=== PATIENT | male | born 1955 | race Hispanic/Latino ===

== ENCOUNTER 2021-05-10 16:37 | Observation (INO) | payer MEDICARE ==
[2021-05-10] MEDS ORDERED: ASPIRIN 325 MG TAB PO ONE (17:31)
[2021-05-10] MEDS ORDERED: NITROGLYCERIN 2% OINT 1 GM TP ONE (17:31)
--- NOTE | 2021-05-10 17:36 | Emergency Department Report ---
HPI - General Chief Complaint: Chest Pain Time Seen by Provider: 05/10/21 17:06 - HPI HPI: Room 4 The patient is a 65-year-old male present with a chief complaint of chest pain. The patient states he had taken his daughter to the dentist and was sitting in the waiting room when he suddenly began to feel nauseous developed sharp substernal chest pain that was intermittent associated with shortness of breath and diaphoresis. Patient states he walked outside to his car and he felt near syncopal. Patient states he sat down in his car and called his . The patient states his next memory is of his next to him waking him up. The patient states he does not remember ending the phone conversation. The states that they did end the phone conversation but she probably hung up first. The patient is not certain if he lost consciousness or fell asleep. The states it took her approximately 1 hour to get to where he wants his of his chest pain lasted approximately 1 hour 15 minutes. Patient has a history of atrial fibrillation and is currently taking Eliquis. Patient states his last cardiac catheterization occurred over 10 to 20 years ago. ED Past Medical Hx - Past Medical History Hx Hypertension: Yes Hx CVA: Yes (TIAs) Hx Diabetes: Yes Hx COPD: Yes (Home O2) Additional medical history: AFIB - Surgical History Past Surgical History?: No Additional Surgical History: Herniorrhaphy - Social History Smoking Status: Former Smoker (None since the age 18) Substance Use Type: None (Denies illicit drug use) ED Review of Systems ROS: Stated complaint: CHEST PAIN Other details as noted in HPI Constitutional: diaphoresis Eyes: denies: eye pain ENT: denies: throat pain Respiratory: shortness of breath Cardiovascular: chest pain Endocrine: no symptoms reported Gastrointestinal: nausea. denies: vomiting Genitourinary: denies: dysuria Musculoskeletal: denies: back pain Neurological: denies: headache Physical Exam - Physical Exam Vital Signs: Vital Signs 05/10/21 16:44 Temperature 98 F Pulse Rate 78 Respiratory 16 Rate Blood Pressure 163/75 [Left] O2 Sat by Pulse 95 Oximetry Physical Exam: GENERAL: The patient is well-developed well-nourished male lying on stretcher not appearing to be in acute distress. [] HEENT: Normocephalic. Atraumatic. Extraocular motions are intact. Patient has moist mucous membranes. NECK: Supple. Trachea midline CHEST/LUNGS: Clear to auscultation. There is no respiratory distress noted. HEART/CARDIOVASCULAR: Regular. There is no tachycardia. There is no gallop rub or murmur. ABDOMEN: Abdomen is soft, nontender. Patient has normal bowel sounds. There is no abdominal distention. SKIN: There is no rash. There is no edema. There is no diaphoresis. NEURO: The patient is awake, alert, and oriented. The patient is cooperative. The patient has no focal neurologic deficits. The patient has normal speech. GCS 15 MUSCULOSKELETAL: There is no evidence of acute injury. ED Course Vital Signs 05/10/21 16:44 Temperature 98 F Pulse Rate 78 Respiratory 16 Rate Blood Pressure 163/75 [Left] O2 Sat by Pulse 95 Oximetry ED Medical Decision Making - Lab Data Result diagrams: 05/10/21 17:36 Laboratory Tests 05/10/21 05/10/21 05/10/21 17:36 17:36 17:36 WBC 8.7 RBC 4.55 Hgb 13.6 Hct 40.9 MCV 90 MCH 30 MCHC 33 RDW 13.8 Plt Count 171 Lymph % (Auto) 13.3 L [place] % (Auto) 4.9 Eos % (Auto) 1.2 Baso % (Auto) 0.5 Lymph # (Auto) 1.2 [place] # (Auto) 0.4 Eos # (Auto) 0.1 Baso # (Auto) 0.0 Seg Neutrophils % 80.1 H Seg Neutrophils # 7.0 PT 14.0 INR 0.97 APTT 30.3 Sodium 138 Potassium 3.9 Chloride 101.3 Carbon Dioxide 20 L Anion Gap 21 BUN 14 Creatinine 0.9 Estimated GFR > 60 BUN/Creatinine Ratio 16 Glucose 134 H Calcium 9.4 Total Creatine Kinase 133 CK-MB (CK-2) 4.1 H CK-MB (CK-2) Rel Index 3.0 Troponin T < 0.010 NT-Pro-B Natriuret Pep 249.6 - EKG Data -: EKG Interpreted by Me EKG shows normal: sinus rhythm, axis Rate: normal (77 bpm) - EKG Data When compared to previous EKG there are: previous EKG unavailable Interpretation: other (PVC) - Radiology Data Radiology results: report reviewed (Chest x-ray), image reviewed (Chest x-ray) interpreted by me: Chest x-ray-no definite focal infiltrates, no pneumothorax [facility] [address] [place] [address] XRay Report Signed Patient: HONG DOLAN MR#: [id number] 10 : 1955 Acct:[id number] Age/Sex: 65 / M ADM Date: 05/10/21 Loc: ED Attending Dr: Ordering Physician: AALIYAH WALKER MD Date of Service: 05/10/21 Procedure(s): XR chest 1V ap Accession Number(s): [id number] cc: AALIYAH WALKER MD Fluoro Time In Minutes: CHEST 1 VIEW 05/10/2021 5:37 PM INDICATION / CLINICAL INFORMATION: ches t pain. COMPARISON: None available. FINDINGS: SUPPORT DEVICES: None. HEART / MEDIASTINUM: No significant abnormality. LUNGS / PLEURA: No significant pulmonary or pleural abnormality. No pneumothorax. ADDITIONAL FINDINGS: No significant additional findings. IMPRESSION: 1. No acute findings. Signer Name: Roxy Valencia MD Signed: 05/10/2021 5:53 PM Workstation Name: [id number] Transcribed By: DT Dictated By: Quinn Valencia MD Electronically Authenticated By: Quinn Valencia MD Signed Date/Time: 05/10/211752 DD/ 51 TD/TT: Print Cancel - Differential Diagnosis ACS, pericarditis, GERD, costochondritis Critical care attestation.: If time is entered above; I have spent that time in minutes in the direct care of this critically ill patient, excluding procedure time. ED Disposition Clinical Impression: Chest pain Disposition: ADMITTED INPATIENT Is pt being admited?: Yes Does the pt Need Aspirin: Yes Condition: Fair Instructions: Nonspecific Chest Pain, Adult Time of Disposition: 19:23 (Hospitalist called (Dr. Nielson)) Heart Score - HEART Score History: Moderately suspicious EKG: Non-specific Age: > 65 Risk factors: > 3 risk factors or hx of atherosclerotic disease Troponin: < normal limit HEART Score: 6 - EKG Read Time Time EKG Completed: 17:29 EKG Read Time: 17:34
[2021-05-10 17:55] LABS: Basophils % (Auto) 0.5 % (0.0-1.8); Eosinophils # (Auto) 0.1 K/mm3 (0.0-0.4); Eosinophils % (Auto) 1.2 % (0.0-4.3); Hematocrit 40.9 % (35.5-45.6); Hemoglobin 13.6 gm/dl (11.8-15.2); Lymphocytes # (Auto) 1.2 K/mm3 (1.2-5.4); Lymphocytes % (Auto) 13.3 % (13.4-35.0); Mean Corpuscular HGB Conc 33 % (32-34); Mean Corpuscular Volume 90 fl (84-94); Monocytes # (Auto) 0.4 K/mm3 (0.0-0.8); Monocytes % (Auto) 4.9 % (0.0-7.3); Platelet Count 171 K/mm3 (140-440); Red Blood Count 4.55 M/mm3 (3.65-5.03); Red Cell Distribution Width 13.8 % (13.2-15.2)
--- NOTE | 2021-05-10 17:57 | XRay Report ---
CHEST 1 VIEW 05/10/2021 5:37 PM INDICATION / CLINICAL INFORMATION: chest pain. COMPARISON: None available. FINDINGS: SUPPORT DEVICES: None. HEART / MEDIASTINUM: No significant abnormality. LUNGS / PLEURA: No significant pulmonary or pleural abnormality. No pneumothorax. ADDITIONAL FINDINGS: No significant additional findings. IMPRESSION: 1. No acute findings. Signer Name: Roxy Valencia MD Signed: 05/10/2021 5:53 PM Workstation Name: [id number]
[2021-05-10 18:02] LABS: INR 0.97 (0.87-1.13)
[2021-05-10 18:03] LABS: Partial Thromboplastin Time 30.3 Sec. (24.2-36.6)
[2021-05-10 19:18] LABS: Creatine Kinase MB 4.1 ng/mL (0.0-4.0)
[2021-05-10 19:19] LABS: BUN/Creatinine Ratio 16; Blood Urea Nitrogen 14 mg/dL (9-20); Calcium 9.4 mg/dL (8.4-10.2); Hemolysis Index 18
[2021-05-10] MEDS ORDERED: MORPHINE 4 MG/1 ML INJ IV PRN (22:21)
[2021-05-10] MEDS ORDERED: METOCLOPRAMIDE 10 MG/2 ML INJ IV PRN (22:21)
[2021-05-10] MEDS ORDERED: ONDANSETRON 4 MG/2 ML INJ IV PRN (22:21)
[2021-05-10] MEDS ORDERED: ACETAMINOPHEN 325 MG TAB PO PRN (22:21)
[2021-05-10] MEDS ORDERED: oxyCODONE /ACETAMINOPHEN 5-325MG TAB PO PRN (22:21)
--- NOTE | 2021-05-10 22:27 | History and Physical Report ---
History of Present Illness Date of examination: 05/10/21 Date of admission: 05/10/21 19:25 Chief complaint: Chest pain for 1 and half hours and passing out prior to admission History of present illness: 65-year-old male with history of hypertension, TIAs, COPD and atrial fibrillation took his daughter to the dentist and was waiting in and call his . The car and 70 became nauseous and developed substernal chest pain that was intermittent and associated with shortness of breath. His temporary R and felt as if he was going to pass out. Patient remembers sitting in his car again and called calling his . Patient apparently passed out for about 4 minutes patient does not remember having a phone conversation with his chest pain lasted about 1 hour 50 minutes. Patient is currently taking Eliquis for his atrial fibrillation. Chest pain was there for 1 hour hours and is now nearly resolved. Chest pain was about 8 on a scale of 1-10 and continuous for 1-1/2 hours. Patient had a cardiac cath about 10 years ago. Patient has a history of COPD and is on home O2. Patient does not remember any of his medications and medications were not reconciled. Patient had diaphoresis when he had the chest pain. No radiation. No vomiting. Some diaphoresis was present. - Past Medical History Hx Hypertension: Yes Hx CVA: Yes (TIAs) Hx Diabetes: Yes Hx COPD: Yes (Home O2) Additional medical history: AFIB - Surgical History Past Surgical History?: No Additional Surgical History: Herniorrhaphy - Social History Smoking Status: Former Smoker (None since the age 18) Substance Use Type: None (Denies illicit drug use) Review of Systems ROS: Stated complaint: CHEST PAIN Other details as noted in HPI Constitutional: diaphoresis Eyes: denies: eye pain ENT: denies: throat pain Respiratory: shortness of breath Cardiovascular: chest pain Endocrine: no symptoms reported Gastrointestinal: nausea. denies: vomiting Genitourinary: denies: dysuria Musculoskeletal: denies: back pain Neurological: denies: headache 65-year-old male with history of hypertension, type COPD and atrial fibrillation COPD, atrial fibrillation Medications and Allergies Allergies Allergy/AdvReac Type Severity Reaction Status Date / Time No Known Allergies Allergy Verified 05/10/21 16:44 Exam - Constitutional Vitals: Temp Pulse Resp BP Pulse Ox 98 F 88 20 143/82 94 05/10/21 19:05 05/10/21 19:30 05/10/21 21:30 05/10/21 21:30 05/10/21 21:30 General appearance: Present: no acute distress, well-nourished - EENT Eyes: Present: PERRL ENT: hearing intact, clear oral mucosa - Neck Neck: Present: supple, normal ROM - Respiratory Respiratory effort: normal Respiratory: bilateral: CTA - Cardiovascular Heart rate: 77 Rhythm: regular Heart Sounds: Present: S1 & S2. Absent: rub, click - Extremities Extremities: pulses symmetrical, No edema Peripheral Pulses: within normal limits - Abdominal General gastrointestinal: Present: soft, non-tender, non-distended, normal bowel sounds Male genitourinary: Present: normal - Integumentary Integumentary: Present: clear, warm, dry - Musculoskeletal Musculoskeletal: gait normal, strength equal bilaterally - Psychiatric Psychiatric: appropriate mood/affect, intact judgment & insight - Neurologic Neurologic: CNII-XII intact, moves all extremities - Allied Health Allied health notes reviewed: nursing, case management HEART Score - HEART Score EKG: Non-specific Age: > 65 Risk factors: > 3 risk factors or hx of atherosclerotic disease Troponin: Troponin T < 0.010 ng/mL (0.00-0.029) 05/10/21 17:36 Troponin: < normal limit - Critical Actions Critical Actions: 4-6 pts:12-16.6% risk of adverse cardiac event. Should be admitted Results - Labs CBC & Chem 7: 05/11/21 04:28 05/11/21 04:28 Labs: Laboratory Last Values WBC 8.7 K/mm3 (4.5-11.0) 05/10/21 17:36 RBC 4.55 M/mm3 (3.65-5.03) 05/10/21 17:36 Hgb 13.6 gm/dl (11.8-15.2) 05/10/21 17:36 Hct 40.9 % (35.5-45.6) 05/10/21 17:36 MCV 90 fl (84-94) 05/10/21 17:36 MCH 30 pg (28-32) 05/10/21 17:36 MCHC 33 % (32-34) 05/10/21 17:36 RDW 13.8 % (13.2-15.2) 05/10/21 17:36 Plt Count 171 K/mm3 (140-440) 05/10/21 17:36 Lymph % (Auto) 13.3 % (13.4-35.0) L 05/10/21 17:36 [place] % (Auto) 4.9 % (0.0-7.3) 05/10/21 17:36 Eos % (Auto) 1.2 % (0.0-4.3) 05/10/21 17:36 Baso % (Auto) 0.5 % (0.0-1.8) 05/10/21 17:36 Lymph # (Auto) 1.2 K/mm3 (1.2-5.4) 05/10/21 17:36 [place] # (Auto) 0.4 K/mm3 (0.0-0.8) 05/10/21 17:36 Eos # (Auto) 0.1 K/mm3 (0.0-0.4) 05/10/21 17:36 Baso # (Auto) 0.0 K/mm3 (0.0-0.1) 05/10/21 17:36 Seg Neutrophils % 80.1 % (40.0-70.0) H 05/10/21 17:36 Seg Neutrophils # 7.0 K/mm3 (1.8-7.7) 05/10/21 17:36 PT 14.0 Sec. (12.2-14.9) 05/10/21 17:36 INR 0.97 (0.87-1.13) 05/10/21 17:36 APTT 30.3 Sec. (24.2-36.6) 05/10/21 17:36 Sodium 138 mmol/L (137-145) 05/10/21 17:36 Potassium 3.9 mmol/L (3.6-5.0) 05/10/21 17:36 Chloride 101.3 mmol/L (98-107) 05/10/21 17:36 Carbon Dioxide 20 mmol/L (22-30) L 05/10/21 17:36 Anion Gap 21 mmol/L 05/10/21 17:36 BUN 14 mg/dL (9-20) 05/10/21 17:36 Creatinine 0.9 mg/dL (0.8-1.3) 05/10/21 17:36 Estimated GFR > 60 ml/min 05/10/21 17:36 BUN/Creatinine Ratio 16 % 05/10/21 17:36 Glucose 134 mg/dL (75-100) H 05/10/21 17:36 Calcium 9.4 mg/dL (8.4-10.2) 05/10/21 17:36 Total Creatine Kinase 133 units/L (55-170) 05/10/21 17:36 CK-MB (CK-2) 4.1 ng/mL (0.0-4.0) H 05/10/21 17:36 CK-MB (CK-2) Rel Index 3.0 (0-4) 05/10/21 17:36 Troponin T < 0.010 ng/mL (0.00-0.029) 05/10/21 17:36 NT-Pro-B Natriuret Pep 249.6 pg/mL (0-900) 05/10/21 17:36 Short CBC 05/10/21 05/11/21 Range/Units 17:36 04:28 WBC 8.7 6.2 (4.5-11.0) K/mm3 Hgb 13.6 13.3 (11.8-15.2) gm/dl Hct 40.9 40.3 (35.5-45.6) % Plt Count 171 164 (140-440) K/mm3 BMP 05/10/21 05/11/21 17:36 04:28 Sodium 138 143 Potassium 3.9 3.8 Chloride 101.3 104.9 Carbon Dioxide 20 L 22 BUN 14 13 Creatinine 0.9 0.9 Glucose 134 H 138 H Calcium 9.4 8.8 Cardiac Enzymes 05/10/21 05/10/21 05/11/21 Range/Units 17:36 23:15 04:28 Total Creatine Kinase 133 (55-170) units/L CK-MB (CK-2) 4.1 H (0.0-4.0) ng/mL Troponin T < 0.010 < 0.010 < 0.010 (0.00-0.029) ng/mL Liver Function 05/11/21 Range/Units 04:28 Total Bilirubin 1.30 H (0.1-1.2) mg/dL AST 16 (5-40) units/L ALT 16 (7-56) units/L Alkaline Phosphatase 85 (35-129) units/L Albumin 3.8 L (3.9-5) g/dL - Imaging and Cardiology EKG: report reviewed (Sinus rhythm, ventricular premature complexes, heart rate of 77) Chest x-ray: report reviewed (No acute findings) Assessment and Plan Advance Directives: Yes (Full code) VTE prophylaxis?: Chemical Plan of care discussed with patient/family: Yes - Patient Problems (1) Acute coronary syndrome Current Visit: Yes Status: Acute Plan to address problem: Chest pain work-up Serial troponins Lexiscan in the morning (2) Syncope Current Visit: Yes Status: Acute Qualifiers: Encounter type: initial encounter Plan to address problem: Syncope work-up Echocardiogram and carotid duplex scan Possible vasovagal (3) Hypertension Current Visit: Yes Status: Chronic Qualifiers: Hypertension type: primary hypertension Qualified Code(s): I10 - Essential (primary) hypertension Plan to address problem: No home medications were reconciliation Patient started on valsartan 80 mg once a day (4) COPD (chronic obstructive pulmonary disease) Current Visit: Yes Status: Acute Plan to address problem: Patient is on home oxygen Continue home oxygen DuoNebs as needed (5) T2DM (type 2 diabetes mellitus) Current Visit: Yes Status: Chronic 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
[2021-05-10] MEDS: HEPARIN 5,000 UNIT/1 ML VIAL SUB-Q SCH (22:39)
[2021-05-10] MEDS ORDERED: FAMOTIDINE 20 MG/2 ML INJ IV SCH (23:00)
[2021-05-11 05:16] LABS: Basophils % (Auto) 0.5 % (0.0-1.8); Eosinophils # (Auto) 0.2 K/mm3 (0.0-0.4); Eosinophils % (Auto) 2.8 % (0.0-4.3); Hematocrit 40.3 % (35.5-45.6); Hemoglobin 13.3 gm/dl (11.8-15.2); Lymphocytes # (Auto) 1.5 K/mm3 (1.2-5.4); Lymphocytes % (Auto) 24.1 % (13.4-35.0); Mean Corpuscular HGB Conc 33 % (32-34); Mean Corpuscular Volume 89 fl (84-94); Monocytes # (Auto) 0.5 K/mm3 (0.0-0.8); Monocytes % (Auto) 8.3 % (0.0-7.3); Platelet Count 164 K/mm3 (140-440); Red Blood Count 4.52 M/mm3 (3.65-5.03); Red Cell Distribution Width 13.9 % (13.2-15.2)
[2021-05-11 05:56] LABS: Alanine Aminotransferase 16 units/L (7-56); Albumin 3.8 g/dL (3.9-5); BUN/Creatinine Ratio 14; Blood Urea Nitrogen 13 mg/dL (9-20); Calcium 8.8 mg/dL (8.4-10.2); Hemolysis Index 5
[2021-05-11] MEDS ORDERED: IPRATROPIUM/ALBUTEROL SULFATE 3 ML AMPUL.NEB IH PRN (06:21)
[2021-05-11] MEDS ORDERED: ALBUTEROL 2.5 MG/3 ML NEBU IH PRN (08:00)
[2021-05-11] MEDS ORDERED: REGADENOSON 0.4 MG/5 ML INJ IV ONE (08:00)
[2021-05-11] MEDS ORDERED: FAMOTIDINE 20 MG TAB PO SCH (10:00)
[2021-05-11] MEDS: VALSARTAN 40 MG TAB PO SCH (11:19)
[2021-05-11] MEDS: INSULIN LISPRO 100 UNIT/ML SUB-Q SCH ×3 (11:19→16:50)
[2021-05-11] MEDS: IPRATROPIUM/ALBUTEROL SULFATE 3 ML AMPUL.NEB IH SCH ×2 (11:19→13:27)
[2021-05-11] MEDS: HEPARIN 5,000 UNIT/1 ML VIAL SUB-Q SCH (11:19)
--- NOTE | 2021-05-11 14:07 | Consultation ---
<BRYANT RUFF - Last Filed: 05/11/21 14:12> History of Present Illness Consult date: 05/11/21 Requesting physician: LISE SHEA Consult reason: chest pain, syncope History of present illness: Patient is a 65-year-old male with a past medical history of paroxysmal A. fib, hypertension, COPD, MORIAH, DM, history of TIA, and history of Covid pneumonia who presented to the ED with a complaint of chest pain and passing out. Patient reports that yesterday while taking his daughter to the dentist he was outside and felt substernal sharp chest pain associated with shortness of breath, diaphoresis, and nausea. Patient states that he was on the phone with his at the time to call her to let her know and lost consciousness. He reports that he does not remember hanging up the phone and that the next thing he remembers was that his was waking him up. Per documentation he was unconscious for approximately an hour. Patient reports that this is not the first time that he has had an episode like this. He states he has had several in the past they usually occur 2-3 times a year. He states that he has been told that this chest pain is likely from his COPD by his sample wrapper. He denies vomiting, palpitati ons, any exacerbating or relieving factors. Patient states his sample wrapper is Dr. Buddy Forbes of [facility](he believes this is the name of the group but is unsure). Patient is previously unknown to our practice. Cardiology is consulted for chest pain and syncope. Past History Past Medical History: atrial fib, COPD, hypertension, stroke Past Surgical History: No surgical history Social history: smoking (former) Family history: CAD, hypertension, stroke Medications and Allergies Allergies Allergy/AdvReac Type Severity Reaction Status Date / Time No Known Allergies Allergy Verified 05/10/21 16:44 Active Meds: Active Medications Acetaminophen (Acetaminophen 325 Mg Tab) 650 mg PO Q4H PRN PRN Reason: Pain MILD(1-3)/Fever >100.5/HEBERT Albuterol (Albuterol 2.5 Mg/3 Ml Nebu) 2.5 mg IH Q4HRT PRN PRN Reason: Shortness Of Breath Albuterol/Ipratropium (Ipratropium/Albuterol Sulfate 3 Ml Ampul.Neb) 1 ampul IH QIDRT [facility] Last Admin: 05/11/21 13:27 Dose: Not Given Documented by: Famotidine (Famotidine 20 Mg Tab) 20 mg PO BID [facility] Last Admin: 05/11/21 11:21 Dose: Not Given Documented by: Heparin Sodium (Porcine) (Heparin 5,000 Unit/1 Ml Vial) 5,000 unit SUB-Q Q12HR [facility] Last Admin: 05/11/21 11:19 Dose: Not Given Documented by: Insulin Human Lispro (Insulin Lispro 100 Unit/Ml) 0 unit SUB-Q ACHS [facility]; Protocol Last Admin: 05/11/21 13:27 Dose: Not Given Documented by: Metoclopramide HCl (Metoclopramide 10 Mg/2 Ml Inj) 10 mg IV Q6H PRN PRN Reason: Nausea And Vomiting Morphine Sulfate (Morphine 4 Mg/1 Ml Inj) 4 mg IV Q4H PRN PRN Reason: Pain , Severe (7-10) Ondansetron HCl (Ondansetron 4 Mg/2 Ml Inj) 4 mg IV Q8H PRN PRN Reason: Nausea And Vomiting Oxycodone/Acetaminophen (Oxycodone /Acetaminophen 5-325mg Tab) 1 tab PO Q6H PRN PRN Reason: Pain, Moderate (4-6) Sodium Chloride (Sodium Chloride 0.9% 10 Ml Flush Syringe) 10 ml IV BID [facility] Last Admin: 05/11/21 11:21 Dose: Not Given Documented by: Sodium Chloride (Sodium Chloride 0.9% 10 Ml Flush Syringe) 10 ml IV PRN PRN PRN Reason: LINE FLUSH Valsartan (Valsartan 40 Mg Tab) 80 mg PO QDAY [facility] Last Admin: 05/11/21 11:19 Dose: Not Given Documented by: Review of Systems Constitutional: no weight loss, no weight gain, no fever, no chills Ears, nose, mouth and throat: no nasal congestion, no nasal discharge, no sinus pressure Cardiovascular: chest pain, syncope, shortness of breath, no orthopnea, no palpitations, no edema Respiratory: shortness of breath, no cough, no cough with sputum Gastrointestinal: nausea, no abdominal pain, no vomiting, no diarrhea Musculoskeletal: no neck stiffness, no neck pain, no shooting arm pain Integumentary: no rash, no pruritis, no redness Neurological: syncope, no head injury, no transient paralysis, no paralysis Psychiatric: no anxiety, no memory loss Endocrine: no cold intolerance, no heat intolerance Hematologic/Lymphatic: no easy bruising, no easy bleeding Physical Examination Vital Signs Temp Pulse Resp BP Pulse Ox 98 F 78 16 163/75 95 05/10/21 16:44 05/10/21 16:44 05/10/21 16:44 05/10/21 16:44 05/10/21 16:44 General appearance: no acute distress HEENT: Positive: PERRL Neck: Positive: trachea midline Cardiac: Positive: Reg Rate and Rhythm Lungs: Positive: clear to auscultation, Normal Breath Sounds Neuro: Positive: Grossly Intact Abdomen: Positive: Soft, Active Bowel Sounds Skin: Negative: Rash, Suspicious Lesions, Ulceration Extremities: Present: upper extr. pulses. Absent: edema Results 05/11/21 04:28 05/11/21 04:28 Cardiac Enzymes 05/10/21 05/11/21 Range/Units 17:36 04:28 AST 16 (5-40) units/L CK-MB (CK-2) 4.1 H (0.0-4.0) ng/mL Coagulation 05/10/21 Range/Units 17:36 PT 14.0 (12.2-14.9) Sec. INR 0.97 (0.87-1.13) APTT 30.3 (24.2-36.6) Sec. CBC 05/10/21 05/11/21 Range/Units 17:36 04:28 WBC 8.7 6.2 (4.5-11.0) K/mm3 RBC 4.55 4.52 (3.65-5.03) M/mm3 Hgb 13.6 13.3 (11.8-15.2) gm/dl Hct 40.9 40.3 (35.5-45.6) % Plt Count 171 164 (140-440) K/mm3 Lymph # (Auto) 1.2 1.5 (1.2-5.4) K/mm3 [place] # (Auto) 0.4 0.5 (0.0-0.8) K/mm3 Eos # (Auto) 0.1 0.2 (0.0-0.4) K/mm3 Baso # (Auto) 0.0 0.0 (0.0-0.1) K/mm3 Comprehensive Metabolic Panel 05/10/21 05/11/21 Range/Units 17:36 04:28 Sodium 138 143 (137-145) mmol/L Potassium 3.9 3.8 (3.6-5.0) mmol/L Chloride 101.3 104.9 (98-107) mmol/L Carbon Dioxide 20 L 22 (22-30) mmol/L BUN 14 13 (9-20) mg/dL Creatinine 0.9 0.9 (0.8-1.3) mg/dL Glucose 134 H 138 H (75-100) mg/dL Calcium 9.4 8.8 (8.4-10.2) mg/dL AST 16 (5-40) units/L ALT 16 (7-56) units/L Alkaline Phosphatase 85 (35-129) units/L Total Protein 6.8 (6.3-8.2) g/dL Albumin 3.8 L (3.9-5) g/dL - Imaging and Cardiology Echo: report reviewed EKG interpretations - Telemetry EKG Rhythm: Sinus Rhythm - EKG Sinus rhythms and dysrhythmias: sinus rhythm Assessment and Plan Patient is a 65-year-old male with a past medical history of paroxysmal A. fib, hypertension, COPD, MORIAH, DM, history of TIA, and history of Covid pneumonia who presented to the ED with a complaint of chest pain and passing out Chest pain Syncope Paroxysmal A. fib-anticoagulated on Eliquis COPD-has home O2 Hypertension History of TIA Echo 05/11/2021-EF 50 to 55% mild LVH. Mild diastolic dysfunction is present impaired relaxation pattern right ventricle not well visual Lexiscan stress test 05/11/2021 preliminary results negative for ischemia Plan: EKG shows normal sinus rhythm 77 with PVC no acute ischemic changes. Troponins negative x3. AMI ruled out Carotid duplex pending Resume outpatient: Eliquis, Lisinopril 20 mg p.o. twice daily, metoprolol 25 mg p.o. twice daily, atorvastatin 80 mg nightly If carotid duplex is negative patient is cleared from cardiac standpoint for discharge. Patient should follow up with their primary cardiologists 1-2 weeks after discharge Patient seen in conjunction with Dr. 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 INR 0.99 (0.87-1.13) APTT 27.6 (24.2-36.6) Sec. CBC 05/11/21 Range/Units 16:17 WBC 6.1 (4.5-11.0) K/mm3 RBC 4.55 (3.65-5.03) M/mm3 Hgb 13.6 (11.8-15.2) gm/dl Hct 40.9 (35.5-45.6) % Plt Count 169 (140-440) K/mm3 Comprehensive Metabolic Panel 05/11/21 Range/Units 16:17 Creatinine 0.8 (0.8-1.3) mg/dL Assessment and Plan Patient was seen and examined. Agree with above note. Patient was entirely asymptomatic upon discharge.
[2021-05-11] MEDS ORDERED: METOPROLOL TARTRATE 25 MG TAB PO SCH (15:00)
--- NOTE | 2021-05-11 15:46 | Vascular Lab Report ---
DUPLEX DOPPLER ULTRASOUND CAROTID, BILATERAL INDICATION / CLINICAL INFORMATION: Syncope. COMPARISON: None available. FINDINGS: RIGHT CAROTID: Mild calcified and noncalcified atherosclerotic plaque. - PLAQUE ESTIMATE (%): < 50% - CCA velocity: 84 cm/sec. - ICA peak systolic velocity: 102 cm/sec. - ICA/CCA PSV Ratio: Less than 2. Right Vertebral Artery: Antegrade flow. LEFT CAROTID: Moderate calcified atherosclerotic plaque. - PLAQUE ESTIMATE (%): >50% - CCA velocity: 74 cm/sec. - ICA peak systolic velocity: 151 cm/sec. - ICA/CCA PSV Ratio: 2.0 Left Vertebral Artery: Antegrade flow. IMPRESSION: 1. Right Internal Carotid Artery: Less than 50% diameter stenosis. 2. Left Internal Carotid Artery: 50-69% diameter stenosis. Velocity criteria are extrapolated from diameter data as defined by the Society of Radiologists in Ul trasound Consensus Conference, Radiology 2003; 229;340-346. NO STENOSIS (NORMAL) - Plaque = none; ICA PSV < 125 cm/sec; ICA/CCA PSV Ratio < 2.0 <50% STENOSIS - Plaque < 50%; ICA PSV < 125 cm/sec; ICA/CCA PSV Ratio < 2.0 50-69% STENOSIS - Plaque > 50%; ICA PSV = 125-230 cm/sec; ICA/CCA PSV Ratio = 2.0-4.0 >70% BUT <100% STENOSIS - Plaque > 50%; ICA PSV > 230 cm/sec; ICA/CCA PSV Ratio > 4.0 NEAR OCCLUSION - Plaque = visible lumen; ICA PSV = high/low/none; ICA/CCA PSV Ratio = variable TOTAL OCCLUSION - Plaque = no lumen; ICA PSV = none; ICA/CCA PSV Ratio = N/A Scribed by: Geetha Gomez RDMS, RVT Scribed: 05/11/2021 2:09 PM I have reviewed the images, agree with this report, and edited this report as needed. Signer Name: Rancho Yan MD Signed: 05/11/2021 3:42 PM Workstation Name: [id number]
[2021-05-11 16:51] LABS: Hematocrit 40.9 % (35.5-45.6); Hemoglobin 13.6 gm/dl (11.8-15.2); Mean Corpuscular HGB Conc 33 % (32-34); Mean Corpuscular Volume 90 fl (84-94); Platelet Count 169 K/mm3 (140-440); Red Blood Count 4.55 M/mm3 (3.65-5.03)
[2021-05-11 17:03] LABS: INR 0.99 (0.87-1.13)
[2021-05-11 17:04] LABS: Partial Thromboplastin Time 27.6 Sec. (24.2-36.6)
--- NOTE | 2021-05-11 17:07 | Discharge Summary ---
Providers - Providers Date of Admission: 05/10/21 19:25 Attending physician: LISE SHEA MD 05/11/21 07:49 Consult to Physician [CONS] Routine Comment: Consulting Provider: XIMENA WRAY Physician Instructions: Reason For Exam: CHEST PAIN, SYNCOPE Primary care physician: [employer] Hospitalization Reason for admission: Syncope chest Condition: Fair Hospital course: Patient is a 65-year-old male with a past medical history of paroxysmal A. fib, hypertension, COPD, MORIAH, DM, history of TIA, and history of Covid pneumonia who presented to the ED with a complaint of chest pain and passing out. Patient reports that yesterday while taking his daughter to the dentist he was outside and felt substernal sharp chest pain associated with shortness of breath, diaphoresis, and nausea. Patient states that he was on the phone with his at the time to call her to let her know and lost consciousness. He reports that he does not remember hanging up the phone and that the next thing he remembers was that his was waking him up. Per documentation he was unconscious for approximately an hour. Patient reports that this is not the first time that he has had an episode like this. He states he has had several in the past they usually occur 2-3 times a year. He states that he has been told that this chest pain is likely from his COPD by his fiber glass worker. He denies vomiting, palpitations, any exacerbating or relieving factors. Patient states his fiber glass worker is Dr. Buddy Forbes of the [facility](he believes this is the name of the group but is unsure). Patient is previously unknown to our practice. Cardiology is consulted for chest pain and syncope. Cardiology evaluated the patient as per the recommendation below. I did discuss with the patient who states that he has had multiple syncopal episodes in the past and he follows with cardiology and has been discussion about possibly pacemaker. He is clinically stable at this time for discharge and will follow with fiber glass worker for vascular evaluation of the left carotid artery. Patient is a 65-year-old male with a past medical history of paroxysmal A. fib, hypertension, COPD, MORIAH, DM, history of TIA, and history of Covid pneumonia who presented to the ED with a complaint of chest pain and passing out Chest pain Syncope Paroxysmal A. fib-anticoagulated on Eliquis COPD-has home O2 Hypertension History of TIA Echo 05/11/2021-EF 50 to 55% mild LVH. Mild diastolic dysfunction is present impaired relaxation pattern right ventricle not well visual Lexiscan stress test 05/11/2021 preliminary results negative for ischemia Plan: - Patient Problems (1) COPD (chronic obstructive pulmonary disease) Current Visit: Yes Status: Acute (2) atypical chest pain Current Visit: Yes Status: Acute (3) Syncope Current Visit: Yes Status: Acute Qualifiers: Encounter type: initial encounter (4) Hypertension Current Visit: Yes Status: Chronic Qualifiers: Hypertension type: primary hypertension Qualified Code(s): I10 - Essential (primary) hypertension (5) Obesity (BMI 30-39.9) Current Visit: Yes Status: Chronic (6) Paroxysmal A-fib Current Visit: Yes Status: Chronic (7) T2DM (type 2 diabetes mellitus) Current Visit: Yes Status: Chronic Qualifiers: Diabetes mellitus nursing home insulin use: unspecified 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 GENERAL: The patient appears normally developed, morbidly obese vital signs as documented. HEAD: No signs of head trauma. EYES: Pupils are equal. Extraocular motions intact. EARS: Hearing grossly intact. MOUTH: Oropharynx is normal. NECK: No adenopathy, no JVD. CHEST: Chest with clear breath sounds bilaterally. No wheezes, rales, or rhonchi. CARDIAC: Regular rate and rhythm. S1 and S2, without murmurs, gallops, or rubs. VASCULAR: No Edema. Peripheral pulses normal and equal in all extremities. ABDOMEN: Soft, non tender and non distended. No rebound or guarding, and no masses palpated. Bowel Sounds normal. MUSCULOSKELETAL: Good range of motion of all major joints. Extremities without clubbing, cyanosis or edema. NEUROLOGIC EXAM: Alert and oriented x 3 No focal sensory or strength deficits. Speech normal. Follows commands. PSYCHIATRIC: Mood normal. SKIN: detail exam as documented in skin assessment - Constitutional Vitals: Temp Pulse Resp BP Pulse Ox 98 F 83 17 167/88 95 05/10/21 19:05 05/11/21 05:05 05/11/21 05:05 05/11/21 10:05 05/11/21 07:51 Plan Activity: advance as tolerated, fall precautions Diet: low fat Special Instructions: record daily weights, record daily BP diary Care Plan Goals: Resume outpatient: Eliquis, Lisinopril 20 mg p.o. twice daily, metoprolol 25 mg p.o. twice daily, atorvastatin 80 mg nightly . Patient should follow up with their primary cardiologists 1-2 weeks after discharge Follow up with: PRIMARY MD OLIVIA [Primary Care Provider] - 7 Days XIMENA WRAY MD [Staff Physician] - 7 Days
[2021-05-11 18:04] VITALS: BP 156/85
[2021-05-11] MEDS ORDERED: LISINOPRIL 20 MG TAB PO SCH (22:00)
[2021-05-11] MEDS ORDERED: APIXABAN 5 MG TAB PO SCH (22:00)
--- NOTE | 2021-05-12 10:36 | Electrocardiograph Report ---
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
== END 2021-05-11 18:16 | disposition home or self-care (01) ==
LOC: ED 16:37 → 4A 19:25
PROVIDERS: ADMIT Internal Medicine; ATTEND Internal Medicine
DX: I24.9 Acute ischemic heart disease, unspecified (principal); I10 Essential (primary) hypertension; R55 Syncope and collapse; J44.9 Chronic obstructive pulmonary disease, unspecified; E11.9 Type 2 diabetes mellitus without complications; I48.0 Paroxysmal atrial fibrillation; E66.9 Obesity, unspecified; R07.89 Other chest pain; Z68.32 Body mass index [BMI] 32.0-32.9, adult; Z86.73 Personal history of transient ischemic attack (TIA), and cerebral infarction without residual deficits; Z79.899 Other long term (current) drug therapy; Z98.890 Other specified postprocedural states; Z87.891 Personal history of nicotine dependence; Z79.4 Long term (current) use of insulin
CPT/HCPCS: 36415; 71045; 78452; 80048; 80053; 82550; 82553; 82565; 82962; 83880; 84484; 85025; 85027; 85379; 85610; 85730; 93005; 93017; 93306; 93880; 99285; A9502; G0378; J2785